=== PATIENT | female | born 1960 | race Caucasian/White ===

== ENCOUNTER → 2021-08-01 | Day surgery (SDC) | payer OTHER ==
[~2021-08-01] MED LIST: KLONOPIN0.5 MG PO
== END | disposition home or self-care (01) ==
LOC: OR 06:16
DX: C18.9 Malignant neoplasm of colon, unspecified (principal); Z90.49 Acquired absence of other specified parts of digestive tract; Z87.891 Personal history of nicotine dependence; Z79.899 Other long term (current) drug therapy
CPT/HCPCS: 77001; C1769; C1788; J0690; J1100; J1642; J2001; J2250; J2405; J2704; J3010; J7040

== ENCOUNTER → 2021-10-04 | Outpatient (CLI) | payer OTHER ==
[2021-10-04 12:56] LABS: HEMOGLOBIN 13.7 gm/dl (12.3-15.3); RED BLOOD COUNT 4.89 M/UL (4.00-5.10); WHITE BLOOD COUNT 8.5 K/UL (4.5-11.0)
== END ==
LOC: OPSV 12:23
PROVIDERS: Internal Medicine Hematology & Oncology
DX: C18.9 Malignant neoplasm of colon, unspecified (principal)
CPT/HCPCS: 36415; 36430; 85027; 86900; 86901; P9035